=== PATIENT | male | born 1970 | race Caucasian/White ===

== ENCOUNTER 2017-01-30 18:17 | Emergency (ER) | payer OTHER ==
[~2017-01-30] VITALS: Ht 172.7 cm; Wt 118.7 kg
[~2017-01-30 18:17] MED LIST: ALBUAER2 INH; PRED20TA PO
[2017-01-30] MEDS ORDERED: DEXAMETHASONE SOD INJ 4 MG/ML VIAL IV STA (18:34)
[2017-01-30] MEDS ORDERED: ALBUT/IPRATROP 3MG/0.5MG NEB 3 ML VIAL INH STA ×3 (18:34→20:03)
[2017-01-30 18:52] LABS: BASO % 0.6 %; BASO ABS # 0.03 K/uL (0-0.2); COMPLETE YES; EOS % 5.8 %; HEMATOCRIT 43.7 % (42-52); IG% 0.8 %; LYMPH ABS # 1.09 K/uL (1.2-3.4); MEAN CELL VOLUME 89.5 fL (80-100); MEAN CORPUSCULAR HEMOGLOBIN 31.8 pg (25-34); MEAN CORPUSCULAR HGB CONC 35.5 g/dl (32-36); MEAN PLATELET VOLUME 9.1 fL (7.4-10.4); MONO % 12.9 %; NEUT % 58.9 %; PLATELET COUNT 218 K/uL (130-400); RED BLOOD COUNT 4.88 M/uL (4.7-6.1)
[2017-01-30 18:56] VITALS: Ht 172.7 cm; Wt 118.7 kg
[2017-01-30 18:58] VITALS: O2SAT 96
[2017-01-30] MEDS ORDERED: ALBINS/ INH (19:01)
[2017-01-30] MEDS ORDERED: VNTHFA/IN INH (19:01)
[2017-01-30] MEDS ORDERED: PSEU30TA3 PO (19:01)
--- NOTE | 2017-01-30 19:02 | DIAGNOSTIC IMAGING REPORT ---
CHEST ONE VIEW PORTABLE CLINICAL HISTORY: Respiratory distress COMPARISON STUDY: 01/24/2016 FINDINGS: The cardiac and mediastinal contours are normal. There is no evidence of focal pulmonary consolidation. There is no evidence of failure. No pleural effusions are visualized.[ There is an old right clavicular deformity IMPRESSION: No active disease in the chest. Electronically signed by: Chuy Gilliam M.D. 01/30/2017 7:00 PM Dictated Date/Time: 01/30/2017 6:59 PM
[2017-01-30 19:32] LABS: URINE APPEARANCE CLEAR (CLEAR); URINE BILIRUBIN NEG (NEG); URINE COLOR YELLOW; URINE NITRITE NEG (NEG); URINE PH 5.5 (4.5-7.5); URINE SPECIFIC GRAVITY 1.022 (1.000-1.030); UROBILINOGEN NEG (NEG)
[2017-01-30 19:35] LABS: MANUAL MICROSCOPIC REQUIRED? NO; REVIEW REQ? NO
[2017-01-30 19:44] LABS: ALB/GLOB RATIO 0.9 (0.9-2); ALKALINE PHOSPHATASE 72 U/L (45-117); ALT/SGPT 34 U/L (12-78); BLOOD UREA NITROGEN 12 mg/dl (7-18); BUN/CREATININE RATIO 10.9 (10-20); CALCIUM 8.5 mg/dl (8.5-10.1); CARBON DIOXIDE 26 mmol/L (21-32); CHLORIDE 105 mmol/L (98-107); CREATININE 1.13 mg/dl (0.60-1.40); GLUCOSE 92 mg/dl (70-99); SODIUM 136 mmol/L (136-145)
--- NOTE | 2017-01-30 20:12 | EMERGENCY ROOM VISIT NOTE ---
History Report prepared by Dilcia: Og Carrasco Under the Supervision of: Dr. Marco German M.D. First contact with patient: 18:28 Chief Complaint: RESPIRATORY PROBLEMS Stated Complaint: TROUBLE BREATHING, ASTHMA History of Present Illness The patient is a 46 year old male who presents to the Emergency Room with complaints of constant SOB beginning last night. The patient states that he was in the emergency department a year ago for similar symptoms, and was put on a nebulizer. He notes that for the past year, the nebulizer has been able to help him control his symptoms. He reports that he used the nebulizer three times today, but states that the treatment is no longer helping. He notes that he has not been on any steroids recently. He reports that he had a chest cold recently , and also complains of a headache, plugged ears, lower back soreness, a productive yellow cough, and chest tightness. The patient states that his chest tightness is constant, but does not radiate to his shoulders and back. Per , the patient was not able to sleep well last night because lying down caused his breathing to worsen. She states that the patient's family has been intermittently sick for the past two months. The patient notes that he has a history of asthma, but does not have a history of blood clots and heart problems. He reports that his current symptoms feel similar to his previous flare ups. The patient states that he went to [place] a few weeks ago. He notes that he chews tobacco. Pt denies LOC, headache, fevers, chills, diaphoresis, visual changes, neck pain, tearing pain radiating to the back, personal history or family history of aneurysm or pulmonary embolism, uncontrolled hypertension, leg swelling, coagulation abnormalities, recent surgery or immobilization, nausea, vomiting, abdominal pain, melena, hematochezia, urinary symptoms, numbness, weakness, lymphadenopathy, rash, or other complaints. Source of History: patient Onset: last night Position: chest Quality: other (SOB) Timing: constant Modifying Factors (Worsening): other (lying down) Associated Symptoms: + headache, + cough (productive yellow cough) Note: He also complains of plugged ears, lower back soreness, and chest tightness. Review of Systems See HPI for pertinent positives and negatives. A total of ten systems were reviewed and were otherwise negative. Past Medical & Surgical Medical Problems: (1) Acute bronchitis (2) Asthma (3) Asthma exacerbation Family History Cancer FH: heart disease Hypertension Social History Smoking Status: Former Smoker Alcohol Use: occasionally Drug Use: none Marital Status: Housing Status: lives with family Occupation Status: employed Current/Historical Medications Scheduled Azithromycin (Zithromax), 250 MG PO DAILY Fluticasone Prop/Salmeterol (Advair Diskus 250/50 60 Dose), 1 PUFFS INH BID Prednisone (Prednisone), 50 MG PO DAILY Pseudoephedrine Hcl (Sudafed Nasal Decongestan), 1 TAB PO prn ud Scheduled PRN Albuterol Hfa (Ventolin Hfa), 2 PUFFS INH Q6H PRN for SOB/Wheezing Albuterol Sulf (Proventil 0.083% 2.5MG/3ML), 2.5 MG INH Q4 PRN for SOB/Wheezing Allergies Coded Allergies: No Known Allergies (Unverified , 01/30/17) Physical Exam Vital Signs Date Time Temp Pulse Resp B/P (MAP) Pulse Ox O2 Delivery O2 Flow Rate FiO2 01/30/17 23:00 36.6 96 18 145/79 96 01/30/17 22:29 96 18 96 Room Air 01/30/17 22:12 92 01/30/17 21:37 96 12 145/79 93 Room Air 01/30/17 20:17 99 15 96 01/30/17 20:02 104 24 96 01/30/17 19:47 97 9 100 01/30/17 19:32 95 14 95 01/30/17 19:29 96 Room Air 01/30/17 19:19 143/96 01/30/17 19:19 98 20 143/96 95 Room Air 01/30/17 18:58 96 Room Air 01/30/17 18:57 96 Room Air 01/30/17 18:57 111 01/30/17 18:25 36.6 103 20 145/91 96 Physical Exam GENERAL: Awake, alert, mildly dyspneic appearing, in no distress HENT: Normocephalic, atraumatic. Oropharynx unremarkable. EYES: Normal conjunctiva. Sclera non-icteric. NECK: Supple. No nuchal rigidity. FROM. No JVD. RESPIRATORY: Clear to auscultation. CARDIAC: Normal rhythm. Extremities warm and well perfused. Pulses equal. Borderline tachycardic. ABDOMEN: Soft, non-distended. No tenderness to palpation. No rebound or guarding. No masses. RECTAL: Deferred. MUSCULOSKELETAL: Chest examination reveals no tenderness. The back is symmetrical on inspection without obvious abnormality. There is no CVA tenderness to palpation. No joint edema. LOWER EXTREMITIES: Calves are equal size bilaterally and non-tender. No edema. No discoloration. NEURO: Normal sensorium. No sensory or motor deficits noted. SKIN: No rash or jaundice noted. Medical Decision & Procedures ER Provider Diagnostic Interpretation: Radiology results as stated below per my review and radiologist interpretation: CHEST ONE VIEW PORTABLE CLINICAL HISTORY: Respiratory distress COMPARISON STUDY: 01/24/2016 FINDINGS: The cardiac and mediastinal contours are normal. There is no evidence of focal pulmonary consolidation. There is no evidence of failure. No pleural effusions are visualized.[ There is an old right clavicular deformity IMPRESSION: No active disease in the chest. Electronically signed by: Chuy Gilliam M.D. 01/30/2017 7:00 PM Laboratory Results 01/30/17 18:40 Red Blood Count 4.88, Mean Corpuscular Volume 89.5, Mean Corpuscular Hemoglobin 31.8, Mean Corpuscular Hemoglobin Concent 35.5, Mean Platelet Volume 9.1, Neutrophils (%) (Auto) 58.9, Lymphocytes (%) (Auto) 21.0, Monocytes (%) (Auto) 12.9, Eosinophils (%) (Auto) 5.8, Basophils (%) (Auto) 0.6, Neutrophils # (Auto ) 3.07, Lymphocytes # (Auto) 1.09, Monocytes # (Auto) 0.67, Eosinophils # (Auto ) 0.30, Basophils # (Auto) 0.03 01/30/17 18:40 01/30/17 20:25 Test 01/30/17 18:40 01/30/17 18:43 01/30/17 18:54 01/30/17 19:21 White Blood Count 5.20 K/uL (4.8-10.8) Red Blood Count 4.88 M/uL (4.7-6.1) Hemoglobin 15.5 g/dL (14.0-18.0) Hematocrit 43.7 % (42-52) Mean Corpuscular Volume 89.5 fL (80-100) Mean Corpuscular Hemoglobin 31.8 pg (25-34) Mean Corpuscular Hemoglobin Concent 35.5 g/dl (32-36) Platelet Count 218 K/uL (130-400) Mean Platelet Volume 9.1 fL (7.4-10.4) Neutrophils (%) (Auto) 58.9 % Lymphocytes (%) (Auto) 21.0 % Monocytes (%) (Auto) 12.9 % Eosinophils (%) (Auto) 5.8 % Basophils (%) (Auto) 0.6 % Neutrophils # (Auto) 3.07 K/uL (1.4-6.5) Lymphocytes # (Auto) 1.09 K/uL (1.2-3.4) Monocytes # (Auto) 0.67 K/uL (0.11-0.59) Eosinophils # (Auto) 0.30 K/uL (0-0.5) Basophils # (Auto) 0.03 K/uL (0-0.2) RDW Standard Deviation 41.7 fL (36.4-46.3) RDW Coefficient of Variation 12.9 % (11.5-14.5) Immature Granulocyte % (Auto) 0.8 % Immature Granulocyte # (Auto) 0.04 K/uL (0.00-0.02) Anion Gap 5.0 mmol/L (3-11) Est Creatinine Clear Calc Drug Dose 104.4 ml/min Estimated GFR () 91.1 Estimated GFR (Non- 78.6 BUN/Creatinine Ratio 10.9 (10-20) Calcium Level 8.5 mg/dl (8.5-10.1) Total Bilirubin 0.4 mg/dl (0.2-1) Alanine Aminotransferase (ALT/SGPT) 34 U/L (12-78) Alkaline Phosphatase 72 U/L (45-117) Total Protein 7.4 gm/dl (6.4-8.2) Albumin 3.6 gm/dl (3.4-5.0) Globulin 3.8 gm/dl (2.5-4.0) Albumin/Globulin Ratio 0.9 (0.9-2) Bedside D-Dimer 376 ng/mlFEU (0-450) Influenza Type A Antigen Neg for Influ A (NEG) Influenza Type B Antigen Neg for Influ B (NEG) Urine Color YELLOW Urine Appearance CLEAR (CLEAR) Urine pH 5.5 (4.5-7.5) Urine Specific [place] 1.022 (1.000-1.030) Urine Protein NEG (NEG) Urine Glucose (UA) NEG (NEG) Urine Ketones NEG (NEG) Urine Occult Blood NEG (NEG) Urine Nitrite NEG (NEG) Urine Bilirubin NEG (NEG) Urine Urobilinogen NEG (NEG) Urine Leukocyte Esterase NEG (NEG) Test 01/30/17 20:25 01/30/17 21:06 Aspartate Amino Transf (AST/SGOT) 18 U/L (15-37) Troponin I < 0.015 ng/ml (0-0.045) Bedside Troponin I < 0.030 ng/ml (0-0.045) Laboratory results reviewed by me Medications Administered Medications (Trade) Dose Ordered Sig/Lisandro Route Start Time Stop Time Status Last Admin Dose Admin Albuterol/ Ipratropium (Duoneb) 3 ml NOW STAT INH 01/30/17 18:34 01/30/17 18:37 DC 01/30/17 18:52 3 ML Dexamethasone Sodium Phosphate (Decadron Inj) 10 mg NOW STAT IV 01/30/17 18:34 01/30/17 18:37 DC 01/30/17 18:51 10 MG Albuterol/ Ipratropium (Duoneb) 3 ml NOW STAT INH 01/30/17 19:29 01/30/17 19:30 DC 01/30/17 19:40 3 ML Albuterol/ Ipratropium (Duoneb) 3 ml NOW STAT INH 01/30/17 20:03 01/30/17 20:04 DC 01/30/17 20:32 3 ML Acetaminophen (Tylenol Tab) 1,000 mg NOW STAT PO 01/30/17 20:24 01/30/17 20:25 DC 01/30/17 20:32 1,000 MG Azithromycin (Zithromax Tab) 500 mg NOW STAT PO 01/30/17 20:24 01/30/17 20:25 DC 01/30/17 20:31 500 MG Azithromycin (Zithromax Tab) 250 mg NOW ONCE PO 01/30/17 23:00 01/30/17 23:01 DC 01/30/17 23:07 250 MG Prednisone (PredniSONE TAB) 40 mg NOW STAT PO 01/30/17 22:50 01/30/17 22:52 DC 01/30/17 23:00 40 MG Prednisone (PredniSONE TAB) 10 mg NOW ONCE PO 01/30/17 23:00 01/30/17 23:01 DC 01/30/17 23:00 10 MG ECG Indication: SOB/dyspnea Rate (beats per minute): 96 Rhythm: normal sinus Findings: other (Nonspecific ST abnormality) Comparison ECG Date: 01/23/2106 Change: EKG 1: Nonspecific ST abnormality is new compared to prior. EKG 2: Normal sinus, 93, nonspecific ST, no change from EKG 1. ED Course 1831: The patient was evaluated in room B7. A complete history and physical exam was performed. 1833: Decadron Inj 10mg IV, Duoneb 3ml INH 1927: I reevaluated and updated the patient. He is feeling better. 1928: Duoneb 3ml INH 2000: I ordered a repeat EKG and a third [place] for the patient. 2002: Duoneb 3ml INH 2023: Azithromycin 500mg PO, Acetaminophen 1000mg PO 2038: I reevaluated and updated the patient. He feels 75% better. 2214: I rechecked the patient. 2249: Prednisone 40mg PO 0: Prednisone 10mg PO, Azithromycin 250mg PO 2332: I reevaluated the patient. Discussed results and discharge instructions: He verbalized understanding and agreement. The patient is ready for discharge. Medical Decision Prior records/ancillary studies reviewed. Triage Nursing notes reviewed and agree them. Additional history obtained from the family. The patient's history was concerning for shortness of breath. Differential diagnosis: Etiologies such as pneumonia, reactive airway disease, bronchitis, COPD, CHF, cardiac ischemia, pulmonary embolism, pneumothorax, musculoskeletal, infections , gastrointestinal, as well as others were entertained. Physical examination: As above. The patient had mild tachycardia. ER treatment provided: DuoNeb 3 IV Decadron On reassessment the patient felt significantly better. The patient was able to ambulate without difficulty. Zithromax Diagnostic interpretation by me: The electrocardiogram was negative for acute ischemic change. Nonspecific ST changes. Repeat ECG performed. There was no change and repeat ECG. The labs revealed an unremarkable CBC and chemistry panel. Troponin negative. Repeat troponin negative. The patient had a negative flu test. D-dimer negative. Imaging studies: Chest x-ray as above. The patient is doing very well. He feels much better after steroids, bronchodilators, and Zithromax. Given his history of reactive airway disease and his symptoms today this seems to be most consistent with reactive airway disease and an acute bronchitis. By the evaluation outlined above emergent etiologies such as CHF, cardiac ischemia, pulmonary embolism, pneumonia, pneumothorax, musculoskeletal, infections, as well as others were deemed relatively unlikely. The patient and were informed about the findings as listed above. All questions were answered and they were pleased with the treatment. Return instructions were outlined and the patient was discharged in stable condition. Outpatient prescription management: Prednisone Zithromax Referral: The patient was referred back to his primary care physician for follow-up in 2 to 3 days for a recheck of the current condition. Medication Reconcilliation Current Medication List: was personally reviewed by me Blood Pressure Screening Patient's blood pressure: Elevated blood pressure Blood pressure disposition: Referred to PCP Impression Primary Impression: Asthma exacerbation Additional Impression: Acute bronchitis Scribe Attestation The scribe's documentation has been prepared under my direction and personally reviewed by me in its entirety. I confirm that the note above accurately reflects all work, treatment, procedures, and medical decision making performed by me. Departure Information Dispostion Home / Self-Care Prescriptions Azithromycin (ZITHROMAX) 250 Mg Tab 250 MG PO DAILY, #3 TAB Prov: Marco German MD 01/30/17 Prednisone (Prednisone) 50 Mg Tab 50 MG PO DAILY for 2 Days, #2 TAB Prov: Marco German MD 01/30/17 Referrals Devon Buenrostro M.D. (PCP) Forms HOME CARE DOCUMENTATION FORM, IMPORTANT VISIT INFORMATION, WORK / SCHOOL INSTRUCTIONS Patient Instructions My [facility] Additional Instructions ASTHMA INSTRUCTIONS: Albuterol nebulizer: Use one treatment 4 times a day as needed for your breathing. Prednisone 50mg: Once daily until the prescription is finished. It is best to take this earlier in the day as some patients note occasional difficulty falling asleep when taken in the late evening. Azithromycin(Zithromax) 250mg: Take one a day for 4 additional days. All antibiotics can cause diarrhea. If this occurs and you feel worse or it does not resolve in 1-2 days follow up with your doctor or return to the Emergency Department as this could be signs of serious underlying problems. Any medication can cause an allergic reaction, stop the pills immediately and return to the ER for rash, hives, breathing difficulties, or swelling. Acetaminophen(Tylenol) may be used for fever or pain. Use 1000mg every six hours as needed. Avoid using more than 4000mg in a 24 hour period. (AND/OR) Ibuprofen(Motrin, Advil) may be used for fever or pain. Use 600mg every six hours as needed. Take with food. Avoid using more than 2400mg in a 24 hour period. Do not use 2400mg per day for more than three consecutive days without physician direction. Prolonged inappropriate use can lead to stomach upset or ulcers. Rest and drink plenty of fluids. Avoid smoke/smoking, fumes, dust, or any triggers in the past that may have affected your breathing. Continue current medications. Return to the ER for chest pain, difficulty breathing, fevers, vomiting, worsening of your condition, or as needed. Follow up with your primary physician Tuesday for a recheck of your current condition and for your blood pressure as it was mildly elevated in the Emergency Room. Problem Qualifiers
[2017-01-30] MEDS ORDERED: ADVIN25/60 INH (20:18)
[2017-01-30] MEDS ORDERED: AZITHROMYCIN 250 MG TAB PO STA (20:24)
[2017-01-30] MEDS ORDERED: ACETAMINOPHEN 500 MG TAB PO STA (20:24)
[2017-01-30 21:03] LABS: POTASSIUM 3.3 mmol/L (3.5-5.1)
[2017-01-30 21:09] LABS: AST/SGOT 18 U/L (15-37)
[2017-01-30] MEDS ORDERED: AZIT-60 PO (22:52)
[2017-01-30] MEDS ORDERED: PRED50TA PO (22:52)
[2017-01-30 23:00] VITALS: BP 145/79; PULSE 96; TEMP 36.6; O2SAT 96
[2017-01-30] MEDS ORDERED: AZITHROMYCIN 250 MG TAB PO ONE (23:00)
== END 2017-01-30 23:01 | disposition home or self-care (01) ==
LOC: C.EDB 18:18
DX: J45.901 Unspecified asthma with (acute) exacerbation (principal); J20.9 Acute bronchitis, unspecified; R06.02 Shortness of breath; Z87.891 Personal history of nicotine dependence